=== PATIENT | male | born 1970 | race Caucasian/White ===

== ENCOUNTER 2023-07-27 14:12 | Emergency (ER) | payer OTHER, SELFPAY ==
[2023-07-27] MEDS ORDERED: Ibuprofen 200 MG TAB ONE (15:24)
== END 2023-07-27 15:45 | disposition home or self-care (01) ==
LOC: CSHERS 14:12
DX: S16.1XXA Strain of muscle, fascia and tendon at neck level, initial encounter (principal); F17.210 Nicotine dependence, cigarettes, uncomplicated; V53.5XXA Driver of pick-up truck or van injured in collision with car, pick-up truck or van in traffic accident, initial encounter
CPT/HCPCS: 70450; 72125